=== PATIENT | female | born 1985 | race Caucasian/White ===

== ENCOUNTER 2019-03-16 16:43 | Emergency (ER) | payer OTHER, SELFPAY ==
[2019-03-16 17:06] VITALS: BP 138/88; PULSE 93; RESP 16; TEMP 36.6; O2SAT 100
--- NOTE | 2019-03-16 17:11 | ED.NAVMDI ---
HPI - Nausea/Vomiting/Diarrhea General Chief complaint: Nausea/Vomiting/Diarrhea Stated complaint: Vomiting Time Seen by Provider: 03/16/19 17:11 Source: patient and family History of Present Illness HPI Narrative: 4 para 3 patient states she took an at home test that was +2 days ago. 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 Patient presents today with nausea due to . Patient requests medication to control nausea. Patient states she thinks she is 6 weeks unsure of her last normal period. Patient denies any vaginal bleeding denies any vaginal discharge. Patient denies any urinary symptoms. Patient denies any abdominal pain denies any pelvic pain. Patient denies any related issues other than nausea. Patient states she is able to tolerate liquids and foods but feels nauseated every morning. MD elicited complaint: nausea Related Data Home Medications Medication Instructions Recorded Confirmed [id number] acid 1 tablet PO DAILY 03/16/19 03/16/19 [Centrum Complete] Allergies Allergy/AdvReac Type Severity Reaction Status Date / Time Penicillins Allergy Mild Rash Verified 03/16/19 17:08 Review of Systems Review of Systems: Narrative: CONSTITUTIONAL: Denies fever, chills, or sweats. EYES: Denies visual changes, redness, or discharge. ENT: Denies rhinorrhea, congestion, sore throat, or otalgia. CARDIOVASCULAR: Denies chest pain, palpitations, or edema. RESPIRATORY: Denies cough or dyspnea. GASTROINTESTINAL: Denies abdominal pain, vomiting, or diarrhea. Nausea in a.m. due to GENITOURINARY: Denies dysuria or hematuria. SKIN: Denies rash or itching. MUSCULOSKELETAL: Denies back pain, joint pain, or myalgia. NEUROLOGIC: Denies headache, numbness, or weakness. PSYCHIATRIC: Denies anxiety or depression. PMFSH Comments At time of signature, agree with nursing past medical, surgical, social and family history. There is no relevant family history pertinent to the presenting complaint Exam Narrative: Exam Narrative: GENERAL: Well-appearing, well-nourished, and in no acute distress. HEAD: Normocephalic, atraumatic. EYES: PERRLA and EOMI. ENT: Nares clear, no rhinorrhea or epistaxis. Mucous membranes moist. NECK: Supple. CHEST: Clear to auscultation. No respiratory distress. HEART: Regular rate and rhythm. No murmur heard. Normal peripheral pulses. ABDOMEN: Soft, nontender, nondistended, normal active bowel sounds. EXTREMITIES: Normal range of motion. No edema. SKIN: Warm, dry, no rash. NEURO: No focal deficits. Alert and oriented x3. Delio Coma Scale Eye Opening: Spontaneous 4 [place] Coma Scale Motor: Obeys Commands 6 [place] Coma Scale Verbal: Oriented 5 [place] Coma Scale Total 15 Course Vital Signs Vital signs: Vital Signs Temperature 36.6 C 03/16/19 17:06 Pulse Rate 93 03/16/19 17:06 Respiratory Rate 16 03/16/19 17:06 Blood Pressure 138/88 03/16/19 17:06 Pulse Oximetry 100 03/16/19 17:06 Temperature 36.6 C 03/16/19 17:06 Pulse Rate 93 03/16/19 17:06 Respiratory Rate 16 03/16/19 17:06 Blood Pressure 138/88 03/16/19 17:06 Pulse Oximetry 100 03/16/19 17:06 Please GISSELL schedule a followup visit with your personal physician for further evaluation and treatment. Including recheck and discussion of your blood pressure. If your symptoms persist, change or worsen significantly before you can contact your personal physician then please, without delay, go to the emergency department for further evaluation MDM - Nausea/Vomiting/Diarrhea MDM Narrative Medical decision making narrative: Discussed nausea in . Patient requests Zofran discuss possible side effects and cleft palate caused to fetus in first trimester. Discussed will prescribe likely just it is safe during . Discussed red flags and when to go to ER. Critical diagnosis patient agreeable with plan of care. If no improvem
== END 2019-03-16 17:27 | disposition home or self-care (01) ==
PROVIDERS: Emergency Provider Nurse Practitioner Family
DX: O21.0 Mild hyperemesis gravidarum (principal); Z3A.01 Less than 8 weeks gestation of pregnancy
CPT/HCPCS: 99203; G0463